=== PATIENT | female | born 1970 | race Caucasian/White ===

== ENCOUNTER 2020-06-22 08:21 | Outpatient (CLI) | payer SELFPAY ==
--- NOTE | 2020-06-22 | CT_ITS ---
WS: [id number] CT ABDOMEN AND PELVIS WITH CONTRAST HISTORY: RLQ PAIN TECHNIQUE: Imaging performed of the abdomen and pelvis with IV contrast. Single phase imaging of the abdomen. Coronal and sagittal reformats are submitted. All CT scans at [facility] use at least one of these dose optimization techniques: automated exposure control; mA and/or kV adjustment per patient size (includes targeted exams where dose is matched to clinical indication); or iterativ e reconstruction. IV CONTRAST: Omnipaque 300; 95 mL IV. Oral contrast: Yes. DLP: 1385.5 mGycm COMPARISON: None available. Lower thorax: Lung bases are clear. Heart is normal size. Moderate-sized hiatal hernia. Postsurgical changes at the GE junction related to a prior gastric bypass. Some of the surgical sutures associated with the gastric bypass are above the GE junction. Liver/biliary system: Normal size with no intrahepatic dilatation. Gallbladder: Normal. No gallstones or wall thickening. No pericholecystic fluid. Pancreas: Normal size pancreas and pancreatic duct. No adjacent inflammation. Spleen: Normal size spleen. No mass or infarct. Adrenal glands: Normal. Right kidney: Normal. Left kidney: Normal. Aorta: Normal. Lymphadenopathy: None. Free fluid: None. GI tract: Prior gastric bypass. No GI tract obstruction. The appendix is normal. There is moderate di ffuse fecal retention and constipation. No significant diverticular disease. Abdominal wall: Postsurgical changes along the midline of the abdominal wall. No complications or her niation. Pelvis: Well-distended urinary bladder. Uterus is normal size. No adnexal masses. Bones: Unremarkable. CT/CT abdomen pelvis w con* [id number] IMPRESSION: 1. No acute abdominal or pelvic abnormalities are identified. 2. Normal appendix. 3. No RIGHT lower quadrant abnormality identified. 4. Prior gastric bypass with moderate hiatal hernia.
[2020-06-22] MEDS: iohexol 300 mg/mL 50 mL Btl PO (09:26)
[2020-06-22] MEDS: iohexol 300 mg/mL 100 mL Btl IV (10:05)
== END 2020-06-22 08:22 | disposition home or self-care (01) ==
PROVIDERS: Family Provider Family Medicine; Visit Provider Physician Assistant
DX: R10.31 Right lower quadrant pain (principal); Z98.84 Bariatric surgery status; K44.9 Diaphragmatic hernia without obstruction or gangrene
CPT/HCPCS: 74177; Q9967

== ENCOUNTER 2021-08-22 15:46 | Outpatient (CLI) | payer SELFPAY ==
--- NOTE | 2021-08-22 16:06 | MR_ITS ---
WS: [id number] MRI LEFT KNEE HISTORY: CRUSHING INJURY OF LEFT KNEE COMPARISON: None available. Anterior cruciate ligament: Mild T2 striations throughout the ACL but no tear. Posterior cruciate ligament: Intact. Medial collateral ligament: Intact. Posterior lateral corner structures: Intact. Medial menisci: Intact. Normal signal, size and shape. Lateral meniscus: Intact. Normal signal, size and shape. Extensor mechanism: Distal quadriceps tendon and patellar tendons are intact. Fluid and soft tissue: Very small amount of fluid in the suprapatellar bursa. No Kim's cyst. Osseous and articular structures: Patellofemoral compartment: Mild superficial fraying along the cartilage of the lateral patellar face t. There is a very small subchondral cyst in the lateral patellar facet. Patellar retinaculum intact. Medial compartment: Very mild narrowing medial compartment. Very minimal signal abnormalities within the cartilage along the weightbearing surface of the femoral condyle. No subchondral cystic changes. Abnormal signal extending obliquely through the anterior tibial plateau. No displacement. Highly susp icious for a healing or healed fracture. No depression along the tibial plateau. Lateral compartment: Normal. MR/MR knee LT con* [id number] IMPRESSION: 1. Abnormal signal along the medial tibial plateau and metaphysis. Consistent with trabecular injury and possibly partially healed fracture. No tibial platea u depression. No displacement. 2. 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
== END 2021-08-22 15:47 | disposition home or self-care (01) ==
LOC: RAD 15:52
PROVIDERS: PCP Nurse Practitioner Family; Visit Provider Nurse Practitioner Family
DX: S87.02XS Crushing injury of left knee, sequela (principal); M22.42 Chondromalacia patellae, left knee; X58.XXXS Exposure to other specified factors, sequela
CPT/HCPCS: 73721

== ENCOUNTER → 2021-10-19 10:21 | Outpatient (BNVA) | payer SELFPAY | PROVIDERS: PCP Nurse Practitioner Family; Visit Provider Orthopaedic Surgery | DX: S89.92XA Unspecified injury of left lower leg, initial encounter (principal); W19.XXXA Unspecified fall, initial encounter | CPT/HCPCS: 73560; 73565 ==

== ENCOUNTER 2022-01-17 13:14 | Outpatient (CLI) | payer SELFPAY ==
--- NOTE | 2022-01-17 13:21 | MM_ITS ---
WS: [id number] BILATERAL 3D TOMOSYNTHESIS DIGITAL SCREENING MAMMOGRAPHY WITH CAD CLINICAL INFORMATION: SCREENING HISTORY: Screening mammogram. Lumps and soreness RIGHT breast. COMPARISON: None. TECHNIQUE: Bilateral CC and MLO views. FINDINGS: Scattered fibroglandular densities bilaterally. No suspicious focal mass, asymmetry, calcifications, or architectural distortion. A few incidental benign calcifications. Recommend RIGHT diagnostic mammo graphy in the area of reported lump with palpable marker followed by ultrasound. LEFT breast is doug l. MM/[place] [id number] IMPRESSION: BI-RADS: 0-Incomplete: Need additional imaging evaluation FOLLOW UP: Need Additional Imaging Recommend RIGHT breast diagnostic mammography with palpable marker in the area of reported lump followed by focused ultrasound in the area of concern.
== END 2022-01-17 13:15 | disposition home or self-care (01) ==
LOC: RAD 13:15
PROVIDERS: PCP Nurse Practitioner Family; Visit Provider Nurse Practitioner Family
DX: Z12.31 Encounter for screening mammogram for malignant neoplasm of breast (principal)
CPT/HCPCS: 77063; 77067

== ENCOUNTER 2022-05-15 10:31 | Outpatient (CLI) | payer MEDICAID, SELFPAY ==
--- NOTE | 2022-05-15 10:44 | MM_ITS ---
WS: [id number] RIGHT 3D TOMOSYNTHESIS DIGITAL MAMMOGRAPHY WITH CAD CLINICAL INFORMATION: ABNORMAL MAMMO HISTORY: Palpable nodule RIGHT breast COMPARISON: January 17, 2022 TECHNIQUE: 3 views of the right breast were obtained. FINDINGS: Scattered fibroglandular densities of the right breast. Again seen is the small ovoid nodule measurin g 6 mm adjacent to the palpable marker lower inner RIGHT breast. ULTRASOUND BREAST RIGHT TECHNIQUE: Ultrasound right breast focused area of concern. CLINICAL INFORMATION: ABNORMAL MAMMO FINDINGS: Ultrasound RIGHT breast at the 4:00 position 5 cm from the nipple in the area of palpable concern. Th ere is a shallow ovoid hypoechoic lesion measuring 5.0 x 3.6 x 5.2 mm. This corresponds to the palpab le nodule on mammography. This is indeterminant and recommend further evaluation with ultrasound-guid ed biopsy. MM/[place] [id number] IMPRESSION: BI-RADS: 4-Suspicious Finding-Biopsy Should Be Considered FOLLOW UP: US Guided Biopsy Recommended Recommend ultrasound-guided biopsy RIGHT breast palpable lesion.
== END 2022-05-15 10:32 | disposition home or self-care (01) ==
LOC: RAD 10:36
PROVIDERS: PCP Nurse Practitioner Family; Visit Provider Nurse Practitioner Family
DX: R92.8 Other abnormal and inconclusive findings on diagnostic imaging of breast (principal); N63.14 Unspecified lump in the right breast, lower inner quadrant
CPT/HCPCS: 76642; 77061; G0279

== ENCOUNTER 2022-06-05 10:25 | Outpatient (CLI) | payer MEDICAID, SELFPAY ==
--- NOTE | 2022-06-05 11:21 | US_ITS ---
WS: [id number] ULTRASOUND-GUIDED RIGHT BREAST BIOPSY CLINICAL INFORMATION: R BREAST NODULE COMPARISON: May 15, 2022 FINDINGS: The procedure including risks, benefits, and complications were discussed with the patient who agreed to proceed. Using sterile technique patient was prepped and draped in the usual sterile fashion. Aft er 1% lidocaine utilizing real-time ultrasound guidance 5 14-gauge cores were obtained of the RIGHT b reast lesion at the 4 o'clock position 5 cm from the nipple. Subsequently a titanium clip was placed in the biopsy cavity. No immediate complications. Pathology demonstrates A. Breast, right, 4 o'clock, 5 cm from nipple, ultrasound-guided biopsy: - Benign breast tissue with collapsed cyst-like material. - No malignancy identified. US/[place] [id number] IMPRESSION: 1. Uncomplicated ultrasound-guided RIGHT breast biopsy. 2. The pathology demonstrates benign breast tissue with collapsed cystlike mat erial. No malignancy. BI-RADS: 2-Benign FOLLOW UP: 1 Year Follow-up
== END 2022-06-05 10:26 | disposition home or self-care (01) ==
PROVIDERS: PCP Nurse Practitioner Family; Visit Provider Nurse Practitioner Family
DX: N63.14 Unspecified lump in the right breast, lower inner quadrant (principal)
CPT/HCPCS: 19083; 88305

== ENCOUNTER 2022-06-10 09:34 | Emergency (ER) | payer MEDICAID, SELFPAY ==
[2022-06-10 09:50] VITALS: BP 133/94; PULSE 70; RESP 15; TEMP 36.3; O2SAT 99; BMI 34.9
--- NOTE | 2022-06-10 10:20 | US_ITS ---
WS: [id number] ULTRASOUND BREAST RIGHT TECHNIQUE: Ultrasound right breast focused area of concern. CLINICAL INFORMATION: swelling at biopsy site COMPARISON: None. FINDINGS: Ultrasound RIGHT breast at the 4:00 position 5 cm from the nipple at the recent biopsy site. There is a large complex collection in the biopsy site measuring 5.6 x 2.2 x 1.4 cm most compatible with absc ess. Associated surrounding parenchymal edema. No internal vascularity. Echogenic internal debris. US/US breast RT limited* [id number] IMPRESSION: Findings most compatible with abscess at the biopsy site measuring 5.6 x 2.2 x 1.4 CM. Surgery consult is pending for further assessment
--- NOTE | 2022-06-10 10:55 | ED_ITS ---
Documented by User: Joel Pabon DO 06/12/22 08:04 HPI - Skin/Abscess/Foreign Bdy General: Chief complaint: Skin/Abscess/Foreign Body Stated complaint: abcess/abnormal labs Time Seen by Provider: 06/10/22 12:58 Source: patient Mode of arrival: ambulatory History of Present Illness: 51-year-old female presents to the emergency room with the swelling at a biopsy site on the right breast for the last 2 days she was seen initially at [place] [facility] and yesterday and advised to come to the ER here. Dr. Burnett called me about her prior to her arrival. On arrival here she is complaining of swelling medial aspect of the right breast at approximately the 4 o'clock position. She has not had any active drainage does have a small pointed area. She does tell she was also at [facility] and prescribed antibiotics. No vomiting or diarrhea. MD complaint: abscess/boil Onset (ago): hour(s) Severity: moderate Quality: aching Pain Consistency: constant Relieving factors: none Exacerbating factors: none Associated symptoms: Deny arthralgias, chills, cough, fever(s), itching, myalgias, nausea, rigidity, short of breath or vomiting Review of Systems Const: Denies: fever(s), chills, fatigue or malaise ENMT: Denies: throat pain, ear or mastoid pain, nasal discharge or nasal congestion Card: Denies: chest pain, edema, dyspnea on exertion or orthopnea Resp: Denies: dyspnea, productive cough or non-productive cough GI: Denies: abdominal pain, nausea or vomiting : Denies: flank pain, difficulty voiding, dysuria, urinary frequency or urinary urgency Skin/Breast: Reports: erythema (Right breast indurated inflamed) Physical Exam Const: GENERAL APPEARANCE: cooperative and comfortable ORIENT ATION/CONSCIOUSNESS: Yes awake, Yes oriented to person, Yes oriented to place and Yes oriented to time HENMT: COMMON NORMALS: normocephalic, atraumatic and hearing grossly normal bilaterally HEAD & SCALP: normocephalic and atraumatic Resp: COMMON NORMALS: normal respiratory effort, No retractions, No use of accessory muscles and clear to auscultation bilaterally AUSCULTATION: clear to auscultation bilaterally Cardio: COMMON NORMALS: regular rate, regular rhythm and No murmurs present (Cardio) RATE: regular rate RHYTHM: regular rhythm GI: COMMON NORMALS: Soft to palpation and No hepatosplenomegaly present AUSCULTATION: Yes normoactive bowel sounds PALPATION: Yes Soft to palpation, No Tenderness to palpation present (GI), No Guarding due to palpation present (GI) and Yes No hepatosplenomegaly present Extremity: COMMON NORMALS: normal to inspection, capillary refill normal, no clubbing, cyanosis or edema, no calf tenderness and no pedal edema Neuro: SENSORIUM/ORIENTATION: Yes oriented to person, Yes oriented to place and Yes oriented to time Skin: OTHER: Indurated skin at the 4 to 5 o'clock position on the right breast with small area of pointing medial inferior superior. Tender to the touch there is a 2 to 3 inch region that is fluctuant the rest of the surrounding area for approximately another 2 to 3 inches is indurated and tender warm to the touch no fluctuance or drainage at this time. Course Vital Signs: Vital signs: Vital Signs Temperature 97.4 F L 06/10/22 09:50 Pulse Rate 88 06/10/22 13:10 Respiratory Rate 16 06/10/22 13:10 Blood Pressure 138/99 06/10/22 13:10 Pulse Oximetry 100 06/10/22 13:10 Oxygen Delivery Me thod Room Air 06/10/22 09:50 MDM - Skin/Abscess/Foreign Bdy Medicial Decision Making Patient has what appears to be developing abscess in the breast. Ultrasound confirmed. Dr. Goldstein had previously done her biopsy I discussed with him he asked that we consult surgery for possible incision and drainage. Area of concern is too large to be managed in the emergency room with local anesthetic. I discussed with Dr. Knott who is on-call for surgery and he will see the patient in the emergency room. Care signed out to Dr. Morillo at change of shift. See final notes for diagnosis and disposition. 51-year-old female checked out to me by the previous physician at shift change. Surgery came to see the patient. Aspiration was attempted, and not successful. He has managed from this point. He placed the patient on 2 different antibiotics, and we will have her return to see him tomorrow for wound check. He has prescribed both dicloxacillin and doxycycline Medical Records I reviewed the patient's medical records. Lab Data I reviewed the patient's lab results. 06/10/22 12:00 06/10/22 12:00 Radiology Impressions Breast Ultrasound 06/10/22 10:20 IMPRESSION: Findings most compatible with abscess at the biopsy site measuring 5.6 x 2.2 x 1.4 CM. Surgery consult is pending for further assessment ADDENDUM: 06/11/22 1012 BIRADS: 2 FOLLOW UP: Surgical Biopsy/Aspiration Recommended. Laboratory Results WBC 9.3 10^3/uL (4.0-10.0) 06/10/22 12:00 RBC 5.05 10^6/uL (4.1-5.3) 06/10/22 12:00 Hgb 11.7 g/dL (11.5-15.3) 06/10/22 12:00 Hct 40.2 % (37.0-47.0) 06/10/22 12:00 MCV 79.6 fl (81-99) L 06/10/22 12:00 MCH 23.2 pg (28.0-34.0) L 06/10/22 12:00 MCHC 29.1 g/dL (30.0-36.0) L 06/10/22 12:00 RDW 16.0 % (12.1-15.1) H 06/10/22 12:00 Plt Count 398 10^3/cmm (130-400) 06/10/22 12:00 MPV 9.3 fL (7.4-10.4) 06/10/22 12:00 Neut % (Auto) 70.7 % 06/10/22 12:00 Lymph % (Auto) 19.3 % 06/10/22 12:00 Elk % (Auto) 8.1 % 06/10/22 12:00 Eos % (Auto) 1.0 % 06/10/22 12:00 Baso % (Auto) 0.6 % 06/10/22 12:00 Neut # (Auto) 6.56 10^3/uL (1.8-7.7) 06/10/22 12:00 Lymph # (Auto) 1.8 10^3/uL (0.8-4.8) 06/10/22 12:00 Elk # (Auto) 0.8 10^3/uL (0.2-0.9) 06/10/22 12:00 Eos # (Auto) 0.1 10^3/uL (0.0-0.8) 06/10/22 12:00 Baso # (Auto) 0.1 10^3/uL (0.0-0.1) 06/10/22 12:00 Nucleated RBC % (auto) 0 % 06/10/22 12:00 Nucleated RBCs # 0.0 /100WBC 06/10/22 12:00 Sodium 136 mmol/L (136-145) 06/10/22 12:00 Potassium 4.1 mmol/L (3.5-5.1) 06/10/22 12:00 Chloride 102 mmol/L (98-107) 06/10/22 12:00 Carbon Dioxide 26 mmol/L (22-29) 06/10/22 12:00 Anion Gap 12.1 (5-19) 06/10/22 12:00 BUN 7 mg/dL (6-20) 06/10/22 12:00 Creatinine 0.5 mg/dL (0.5-0.9) 06/10/22 12:00 GFR Calculation 129.6 mL/min (90-130) 06/10/22 12:00 Glucose 78 mg/dL (65-115) 06/10/22 12:00 Calculated Osmolality 279 mOsm/kg (285-295) L 06/10/22 12:00 Calcium 8.7 mg/dL (8.5-10.5) 06/10/22 12:00 Discharge Plan Discharge Patient Disposition: Home Clinical Impression: Breast abscess Condition: Stable Prescriptions: New dicloxacillin 500 mg capsule 500 mg PO QID Qty: 30 0RF No Action naproxen 500 mg tablet 500 mg PO BID Qty: 60 0RF Discharge Orders: Discharge ED (Routine); Ordered 06/10/22 Ordered By: Wes Knott Referrals: Blanca Hernandez FNP [Primary Care Provider] - Discharge Diet: Regular Discharge Activity: Resume usual activity Patient Instructions: Opioid Safety, Pain Management Activity Restrictions/Additional Instructions: return to ER tomorrow for wound check. Coding Level of Care Code ED Environmental Management Specialist for Estephaniag Fwd Documented by User: Beni Morillo DO 06/10/22 13:10 HPI - Skin/Abscess/Foreign Bdy General: Chief complaint: Skin/Abscess/Foreign Body Stated complaint: abcess/abnormal labs Time Seen by Provider: 06/10/22 12:58 Course Vital Signs: Vital signs: Vital Signs Temperature 97.4 F L 06/10/22 09:50 Pulse Rate 88 06/10/22 13:10 Respiratory Rate 16 06/10/22 13:10 Blood Pressure 138/99 06/10/22 13:10 Pulse Oximetry 100 06/10/22 13:10 Oxygen Delivery Me thod Room Air 06/10/22 09:50 MDM - Skin/Abscess/Foreign Bdy Medicial Decision Making 51-year-old female checked out to me by the previous physician at shift change. Surgery came to see the patient. Aspiration was attempted, and not successful. He has managed from this point. He placed the patient on 2 different antibiotics, and we will have her return to see him tomorrow for wound check. He has prescribed both dicloxacillin and doxycycline Lab Data 06/10/22 12:00 06/10/22 12:00 Radiology Impressions Breast Ultrasound 06/10/22 10:20 IMPRESSION: Findings most compatible with abscess at the biopsy site measuring 5.6 x 2.2 x 1.4 CM. Surgery consult is pending for further assessment ADDENDUM: 06/11/22 1012 BIRADS: 2 FOLLOW UP: Surgical Biopsy/Aspiration Recommended. Laboratory Results WBC 9.3 10^3/uL (4.0-10.0) 06/10/22 12:00 RBC 5.05 10^6/uL (4.1-5.3) 06/10/22 12:00 Hgb 11.7 g/dL (11.5-15.3) 06/10/22 12:00 Hct 40.2 % (37.0-47.0) 06/10/22 12:00 MCV 79.6 fl (81-99) L 06/10/22 12:00 MCH 23.2 pg (28.0-34.0) L 06/10/22 12:00 MCHC 29.1 g/dL (30.0-36.0) L 06/10/22 12:00 RDW 16.0 % (12.1-15.1) H 06/10/22 12:00 Plt Count 398 10^3/cmm (130-400) 06/10/22 12:00 MPV 9.3 fL (7.4-10.4) 06/10/22 12:00 Neut % (Auto) 70.7 % 06/10/22 12:00 Lymph % (Auto) 19.3 % 06/10/22 12:00 Elk % (Auto) 8.1 % 06/10/22 12:00 Eos % (Auto) 1.0 % 06/10/22 12:00 Baso % (Auto) 0.6 % 06/10/22 12:00 Neut # (Auto) 6.56 10^3/uL (1.8-7.7) 06/10/22 12:00 Lymph # (Auto) 1.8 10^3/uL (0.8-4.8) 06/10/22 12:00 Elk # (Auto) 0.8 10^3/uL (0.2-0.9) 06/10/22 12:00 Eos # (Auto) 0.1 10^3/uL (0.0-0.8) 06/10/22 12:00 Baso # (Auto) 0.1 10^3/uL (0.0-0.1) 06/10/22 12:00 Nucleated RBC % (auto) 0 % 06/10/22 12:00 Nucleated RBCs # 0.0 /100WBC 06/10/22 12:00 Sodium 136 mmol/L (136-145) 06/10/22 12:00 Potassium 4.1 mmol/L (3.5-5.1) 06/10/22 12:00 Chloride 102 mmol/L (98-107) 06/10/22 12:00 Carbon Dioxide 26 mmol/L (22-29) 06/10/22 12:00 Anion Gap 12.1 (5-19) 06/10/22 12:00 BUN 7 mg/dL (6-20) 06/10/22 12:00 Creatinine 0.5 mg/dL (0.5-0.9) 06/10/22 12:00 GFR Calculation 129.6 mL/min (90-130) 06/10/22 12:00 Glucose 78 mg/dL (65-115) 06/10/22 12:00 Calculated Osmolality 279 mOsm/kg (285-295) L 06/10/22 12:00 Calcium 8.7 mg/dL (8.5-10.5) 06/10/22 12:00 Discharge Plan Discharge Patient Disposition: Home Clinical Impression: Breast abscess Condition: Stable Prescriptions: New dicloxacillin 500 mg capsule 500 mg PO QID Qty: 30 0RF No Action naproxen 500 mg tablet 500 mg PO BID Qty: 60 0RF Discharge Orders: Discharge ED (Routine); Ordered 06/10/22 Ordered By: Wes Knott Referrals: Blanca Hernandez FNP [Primary Care Provider] - Discharge Diet: Regular Discharge Activity: Resume usual activity Patient Instructions: Opioid Safety, Pain Management Activity Restrictions/Additional Instructions: return to ER tomorrow for wound check. Coding Level of Care Code ED Environmental Management Specialist for Melanie Harley
[2022-06-10 12:16] LABS: Basophils # 0.1 10^3/uL (0.0-0.1); Basophils % 0.6 %; Eosinophils # 0.1 10^3/uL (0.0-0.8); Hematocrit 40.2 % (37.0-47.0); Hemoglobin 11.7 g/dL (11.5-15.3); Lymphocytes # 1.8 10^3/uL (0.8-4.8); Lymphocytes % 19.3 %; Mean Corpuscular HGB Conc 29.1 g/dL (30.0-36.0); Mean Corpuscular Hemoglobin 23.2 pg (28.0-34.0); Mean Corpuscular Volume 79.6 fl (81-99); Mean Platelet Volume 9.3 fL (7.4-10.4); Monocytes # 0.8 10^3/uL (0.2-0.9); Monocytes % 8.1 %; Neutrophils # 6.56 10^3/uL (1.8-7.7); Neutrophils % 70.7 %; Nucleated Red Blood Cells % 0 %; Platelet Count 398 10^3/cmm (130-400); Red Blood Count 5.05 10^6/uL (4.1-5.3); White Blood Count 9.3 10^3/uL (4.0-10.0)
[2022-06-10 12:35] LABS: Anion Gap 12.1 (5-19); Blood Urea Nitrogen 7 mg/dL (6-20); Calcium 8.7 mg/dL (8.5-10.5); Carbon Dioxide 26 mmol/L (22-29); Chloride 102 mmol/L (98-107); Glomerular Filtration Rate 129.6 mL/min (90-130); Glucose 78 mg/dL (65-115); Osmolality Calculated 279 mOsm/kg (285-295); Potassium 4.1 mmol/L (3.5-5.1); Sodium 136 mmol/L (136-145)
[2022-06-10] MEDS: lidocaine-epi 1% 20 mL INJ INJECTION (12:38)
--- NOTE | 2022-06-10 12:38 | PM.CONSULT ---
Providers/Reason For Consult Consulting Physician/Specialty*: ER physician Reason for Consult*: Breast abscess Primary Care Provider: ARPITA Saunders History of Present Illness History of Present Illness Jeanne Layne is a 51 year old female underwent a breast biopsy. The patient started having pain in her right breast over the last 24 to 48 hours. The patient went to another hospital where she was found to have possible breast abscess. The patient was given some doxycycline. Unfortunately she was only given 100 mg to be taken twice daily. The patient presents here with pain. The patient does not have fever or chills. Review of Systems General: Reports: 10 or more systems reviewed and unremarkable except in HPI and below Medications/Allergies Home Medications Medication Instructions Recorded Confirmed Last Taken Type naproxen 500 mg tablet 500 mg PO BID pain #60 tabs 10/19/21 10/19/21 Unknown Rx Allergies Allergy/AdvReac Type Severity Reaction Status Date / Time No Known Allergies Allergy Verified 06/10/22 10:00 Vitals/I&O/Wt Last Vital Signs Temp 97.4 F L 06/10/22 09:50 Pulse 70 06/10/22 09:50 Resp 15 06/10/22 09:50 BP 133/94 06/10/22 09:50 Pulse Ox 99 06/10/22 09:50 O2 Del Method Room Air 06/10/22 09:50 Weight last 48 hrs Weight 230 lb Physical Exam Narrative: Generally: No acute distress Right breast: The patient has an area of induration in the medial aspect of her right breast. It is tender with increased warmth. There is no fluctuance that I can appreciate. There is no axillary adenopathy Lungs: Clear to auscultation Heart: Regular rate and rhythm Abdomen: Soft nontender without masses morbidly obese Neurologic: Awake, alert, oriented x3. Patient sensations intact to light touch throughout. The patient moves all 4 extremities without difficulty. Data 06/10/22 12:00 06/10/22 12:00 Micro: Microbiology 06/10/22 12:05 Blood Culture - Preliminary Blood SPECIMEN COLLECTED 06/10/22 12:00 Blood Culture - Preliminary Blood SPECIMEN COLLECTED Attestation for Other Data: I personally reviewed and interpreted the following: (I reviewed all of the patient's labs as well as the ultrasound of the breast.) A&P Assessment and plan (1) Breast abscess: I spoke with the patient at length. I explained performing an incision and drainage forces aspiration. The patient chose aspiration. 1% lidocaine with epinephrine was used to anesthetize the skin. Then using an 18-gauge needle I attempted to aspirate the abscess. I was never able to get into the abscess. I did use ultrasound. I was unable to find the area in which the patient had a discrete fluid collection. I did stick the patient a second time. Again I really did not find a pocket of pus. We will place the patient on doxycycline 500 mg 4 times daily. We will have the patient return to the emergency room tomorrow for repeat examination. I explained this to the patient and she is agreeable. Coding Level of Care Code Acute Code for [facility] Diagnoses Breast abscess N61.1
[2022-06-10 13:10] VITALS: BP 138/99; PULSE 88; RESP 16; O2SAT 100
== END 2022-06-10 13:12 | disposition home or self-care (01) ==
PROVIDERS: Family Medicine; Emergency Provider Emergency Medicine; PCP Nurse Practitioner Family
DX: N61.1 Abscess of the breast and nipple (principal)
CPT/HCPCS: 36415; 76642; 80048; 85025; 87040; 99285

== ENCOUNTER 2022-06-11 10:28 | Outpatient (CLI) | payer MEDICAID, SELFPAY ==
--- NOTE | 2022-06-11 10:35 | US_ITS ---
WS: [id number] INDICATION: RIGHT breast abscess TECHNIQUE: The procedure, including risks benefits and complications were discussed with the patient who agreed to proceed. Using sterile technique patient was prepped and draped in usual sterile fashio n. Timeout was performed. After 1% lidocaine, using ultrasound guidance, approximately 8 cc of bloody fluid was aspirated from the abscess cavity. An 18-gauge and 4 Azeri Yueh needle were utilized. No immediate complications. Fluid was sent for cultures. US/[place] [id number] IMPRESSION: Ultrasound guided aspiration RIGHT breast abscess. Approximately 8 cc bloody fluid was aspirated. Fluid was sent for cultures. Patient will return on Wednesday 06/14 for ultrasound RIGHT breast with possible as piration of abscess cavity if residual or recurrent fluid present. Patient curr ently undergoing oral antibiotic therapy.
== END 2022-06-11 10:29 | disposition home or self-care (01) ==
LOC: RAD 10:31
PROVIDERS: PCP Nurse Practitioner Family; Visit Provider Nurse Practitioner Family
DX: N60.01 Solitary cyst of right breast (principal)
CPT/HCPCS: 19000; 87070; 87075; 87077; 87186; 87205

== ENCOUNTER 2022-06-14 07:49 | Outpatient (CLI) | payer MEDICAID, SELFPAY ==
--- NOTE | 2022-06-14 08:30 | US_ITS ---
WS: [id number] ULTRASOUND-GUIDED RIGHT BREAST ASPIRATION CLINICAL INFORMATION: FOLLOW UP R BREAST CYST FINDINGS: The procedure including risks, benefits, and complications were discussed with the patient who agreed to proceed. Using sterile technique patient was prepped and draped in the usual sterile fashion. Aft er 1% lidocaine utilizing real-time ultrasound guidance approximately 8 to 10 cc of bloody fluid was aspirated from the RIGHT breast abscess. 4 Mongolian Yueh catheter and 18-gauge needle was utilized for drainage. Subcutaneous edema has improved compared to the prior examination. US/[place] [id number] IMPRESSION: 1. Uncomplicated ultrasound-guided RIGHT breast abscess drainage. 2. Subcutaneous edema has improved compared to previous. Visually the skin marissa lulitis has improved and essentially resolved. 3. Patient prescribed double strength Bactrim 2 pills twice a day for 10 days as current doxycycline prescription was for 5 days. Patient reports some GI dis tress with the doxycycline. 4. Patient to return proximal 1 week for ultrasound RIGHT breast follow-up. BI-RADS: 2-Benign FOLLOW UP: See Report
== END 2022-06-14 07:50 | disposition home or self-care (01) ==
LOC: RAD 07:51
PROVIDERS: PCP Nurse Practitioner Family; Visit Provider Nurse Practitioner Family
DX: N61.1 Abscess of the breast and nipple (principal)
CPT/HCPCS: 19000; 76942

== ENCOUNTER 2022-06-26 10:23 | Outpatient (CLI) | payer SELFPAY ==
--- NOTE | 2022-06-26 10:33 | US_ITS ---
WS: [id number] ULTRASOUND-GUIDED RIGHT BREAST ASPIRATION CLINICAL INFORMATION: Abscess COMPARISON: 06/11/2022 and 06/14/2022 FINDINGS: The procedure including risks, benefits, and complications were discussed with the patient who agreed to proceed. Using sterile technique patient was prepped and draped in the usual sterile fashion. Aft er 1% lidocaine utilizing real-time ultrasound guidance and a 4 Hebrew Yueh needle, approximately 5 t o 6 cc of bloody fluid was aspirated from the residual cavity. No immediate complications. US/US breast RT limited* [id number] IMPRESSION: 1. Uncomplicated ultrasound-guided RIGHT breast aspiration 2. Recommend 3 month follow-up RIGHT breast ultrasound to ensure resolution of abscess cavity 3. Patient instructed to contact breast memory care director if increasing pain or r edness in the interim BI-RADS: 2-Benign FOLLOW UP: 3 Month Follow-up
--- NOTE | 2022-06-26 11:17 | US_ITS ---
WS: [id number] ULTRASOUND-GUIDED RIGHT BREAST ASPIRATION CLINICAL INFORMATION: Abscess COMPARISON: 06/11/2022 and 06/14/2022 FINDINGS: The procedure including risks, benefits, and complications were discussed with the patient who agreed to proceed. Using sterile technique patient was prepped and draped in the usual sterile fashion. Aft er 1% lidocaine utilizing real-time ultrasound guidance and a 4 [place] Yueh needle, approximately 5 t o 6 cc of bloody fluid was aspirated from the residual cavity. No immediate complications. US/[place] [id number] IMPRESSION: 1. Uncomplicated ultrasound-guided RIGHT breast aspiration 2. Recommend 3 month follow-up RIGHT breast ultrasound to ensure resolution of abscess cavity 3. Patient instructed to contact breast hospice care transitions coordinator if increasing pain or r edness in the interim BI-RADS: 2-Benign FOLLOW UP: 3 Month Follow-up
== END 2022-06-26 10:24 | disposition home or self-care (01) ==
LOC: RAD 10:28
PROVIDERS: PCP Nurse Practitioner Family; Visit Provider Nurse Practitioner Family
DX: N61.1 Abscess of the breast and nipple (principal)
CPT/HCPCS: 19000; 76642; 76942

== ENCOUNTER 2022-11-07 13:26 | Outpatient (CLI) | payer SELFPAY ==
--- NOTE | 2022-11-07 13:39 | US_ITS ---
WS: [id number] ULTRASOUND BREAST RIGHT TECHNIQUE: Ultrasound right breast focused area of concern. CLINICAL INFORMATION: INCONCLUSIVE/ABNORMAL MAMMOGRAM FINDINGS COMPARISON: Multiple prior ultrasounds, most recent 06/26/2022. FINDINGS: Ultrasound RIGHT breast 4 o'clock position 5 cm from the nipple. No evidence of recurrent drainable a bscess or fluid collection. Normal underlying parenchymal tissue. No other suspicious findings today. IMPRESSION: BI-RADS 2 benign Recommend return to annual screening mammography.
== END 2022-11-07 13:27 | disposition home or self-care (01) ==
LOC: RAD 13:29
PROVIDERS: PCP Nurse Practitioner Family; Visit Provider Nurse Practitioner Family
DX: R92.2 Inconclusive mammogram (principal); R92.8 Other abnormal and inconclusive findings on diagnostic imaging of breast
CPT/HCPCS: 76642